=== PATIENT | female | born 1995 | race Caucasian/White ===

== ENCOUNTER 2017-01-02 23:51 | Emergency (ER) | payer OTHER ==
[2017-01-03] MEDS ORDERED: NS 0.9% 1000 ML* 1,000 ML IV ONE (01:07)
[2017-01-03 02:11] LABS: Hematocrit 41 % (35-47); Hemoglobin 13.6 g/dl (12.0-16.0); Mean Corpuscular HGB Conc 33 g/dl (31-36); Mean Corpuscular Hemoglobin 29 pg (27-31); Mean Corpuscular Volume 88 fL (80-97); Mean Platelet Volume 8 um3 (7.4-10.4); Red Blood Count 4.63 10^6/ul (4.0-5.4); Red Cell Distribution Width 13 % (10.5-15); White Blood Count 6.9 10^3/ul (3.5-10.8)
[2017-01-03 02:23] LABS: ALT 16 U/L (7-52); AST 21 U/L (13-39); Albumin 4.4 g/dL (3.2-5.2); Alkaline Phosphatase 36 U/L (34-104); Anion Gap 7 mmol/L (2-11); BUN/Creatinine Ratio 15.6 (8-20); Blood Urea Nitrogen 12 mg/dL (6-24); CO2 Carbon Dioxide 26 mmol/L (22-32); Calcium 9.7 mg/dL (8.6-10.3); Chloride 102 mmol/L (101-111); EGFR African American 121.7 (>60); EGFR Non-African American 94.6 (>60); Glucose 94 mg/dL (70-100); Potassium 4.1 mmol/L (3.5-5.0); Sodium 135 mmol/L (133-145); Total Protein 7.4 g/dL (6.4-8.9)
[2017-01-03] MEDS ORDERED: Iohexol 350* (CONTRAST) 500 ML MDV IV ONE (03:12)
[2017-01-03 04:33] VITALS: BP 106/65
--- NOTE | 2017-01-03 06:45 | ED ---
Ankur Murdock Alok, scribed for Michelle Lawtonuel on 01/03/17 at 0132 . Shortness of Breath - HPI Summary HPI Summary: 21 y/o female presents to the ED with SOB and faintness since 1600 today. Pt states she tried sleeping in order to alleviate her symptoms with no effect. Pt states that she also felt throat tightness with initial onset of SOB. Pt states she has experienced similar symptoms once before though never this severe. Pt denies CP. Pt takes BCP. Pt denies PMHx of asthma. - History of Current Complaint Chief Complaint: EDShortnessOfBreath Time Seen by Provider: 01/03/17 00:57 Hx Obtained From: Patient Onset/Duration: Lasting Hours, Still Present Timing: Constant Current Severity: Moderate Dyspnea At: Rest - Allergy/Home Medications Allergies/Adverse Reactions: Allergies Allergy/AdvReac Type Severity Reaction Status Date / Time No Known Allergies Allergy Verified 01/02/17 23:54 PMH/Surg Hx/FS Hx/Imm Hx Respiratory History: Denies: Hx Asthma Infectious Disease History: No Infectious Disease History: Denies: Traveled Outside the [place] in Last 30 Days - Family History Known Family History: Negative: Hypertension - Social History Occupation: Student Alcohol Use: Occasionally Substance Use Type: Reports: None Smoking Status (MU): Never Smoked Tobacco Review of Systems Negative: Fever Positive: Other - throat tightness Negative: Chest Pain Positive: Shortness Of Breath Neurological: Other - faintness All Other Systems Reviewed And Are Negative: Yes Physical Exam Triage Information Reviewed: Yes Vital Signs On Initial Exam: Initial Vitals Temp Pulse Resp BP Pulse Ox 97.5 F 73 18 114/76 100 01/02/17 23:57 01/02/17 23:57 01/02/17 23:57 01/02/17 23:57 01/02/17 23:57 Vital Signs Reviewed: Yes Appearance: Positive: Well-Appearing, No Pain Distress Skin: Positive: Warm, Skin Color Reflects Adequate Perfusion, Dry Head/Face: Positive: Normal Head/Face Inspection Eyes: Positive: EOMI, JO ENT: Positive: Normal ENT inspection Neck: Positive: Supple, Nontender Respiratory/Lung Sounds: Positive: Clear to Auscultation, Breath Sounds Present Cardiovascular: Positive: RRR, Pulses are Symmetrical in both Upper and Lower Extremities Abdomen Description: Positive: Nontender, Soft Bowel Sounds: Positive: Present Musculoskeletal: Positive: Normal, Strength/ROM Intact Neurological: Positive: Normal, Sensory/Motor Intact, Alert, Oriented to Person Place, Time Diagnostics - Vital Signs Vital Signs Temp Pulse Resp BP Pulse Ox 01/02/17 23:57 97.5 F 73 18 114/76 100 - Laboratory Result Diagrams: 01/03/17 01:50 01/03/17 01:50 Lab Statement: Any lab studies that have been ordered have been reviewed, and results considered in the medical decision making process. - CT CTA Chest CT Interpretation: Positive (See Comments) - IMPRESSION: NO EVIDENCE OF ACUTE PATHOLOGY. CT Interpretation Completed By: Radiologist - EKG 0006 Cardiac Rate: NL - approximately 70 bpm EKG Rhythm: Sinus Rhythm EKG Interpretation: No acute changes Re-Evaluation - Re-Evaluation First Eval Re-Evaluation Time: 04:10 Change: Improved Comment: Pt states she feels better now. Course/Dx - Course Course Of Treatment: Labs and CT reviewed showed no PE. Pt states she feels better now and will discharge pt home. - Diagnoses Provider Diagnoses: Dyspnea Discharge - Discharge Plan Condition: Stable Disposition: HOME Patient Education Materials: Dyspnea (ED) Additional Instructions: Please follow up with your primary care provider in the next three days. The documentation as recorded by the Ankur reyes Alok accurately reflects the service I personally performed and the decisions made by Jered donovan Emmanuel.
--- NOTE | 2017-01-03 08:14 | RAD ---
Indication: Pulmonary embolus. Contrast: Administered 58.9 ml of OMNIPAQUE 350 mgi/ml CTA of the chest was performed after IV contrast administration. Coronal and sagittal reconstructed images were obtained. The pulmonary arterial tree is well opacified. No filling defects present to suggest pulmonary embolus. The thoracic aorta demonstrates no aneurysmal dilatation or aortic dissection. The trachea and major bronchi appear patent. Lung combs demonstrate no pleural fluid, nodules or masses. The visualized abdominal organs are grossly unremarkable. The bony structures demonstrates no evidence of compression fracture. IMPRESSION: NO EVIDENCE OF PULMONARY EMBOLUS OR AORTIC DISSECTION IS NOTED. NO ANEURYSMAL DILATATION IS NOTED.
== END 2017-01-03 04:30 | disposition home or self-care (01) ==
LOC: ED 23:51
DX: R06.00 Dyspnea, unspecified (principal); R55 Syncope and collapse; R07.0 Pain in throat; R00.0 Tachycardia, unspecified; Z32.02 Encounter for pregnancy test, result negative
CPT/HCPCS: 36415; 71275; 80053; 83880; 84484; 84702; 85025; 85379; 85610; 85730; 93005; 96361; 96374; 99283; Q9967